=== PATIENT | female | born 1990 | race Caucasian/White ===

== ENCOUNTER 2016-07-28 13:11 | Inpatient (IN) ==
[2016-07-28] MEDS ORDERED: Ondansetron 4 MG/2 ML VIAL IVP PRN ×3 (14:55→22:40)
[2016-07-28] MEDS ORDERED: Naloxone 0.4 MG/ML INJ IVP PRN (14:55)
[2016-07-28] MEDS ORDERED: Famotidine 20 MG/2 ML VIAL IVP PRN (14:55)
[2016-07-28] MEDS ORDERED: Ringers Solution, Lactated 1,000 ML IVC SCH (15:00)
--- NOTE | 2016-07-28 15:01 | OB/GYN History & Physical ---
Date of Encounter: 07/28/16 Time of Encounter: 14:57 Assessment and Plan (1) 38 weeks gestation of Current visit: Yes Status: Acute 1. Unable to obtain cervical exam due to patient discomfort. Will obtain labs and discuss epidural with anesthesia to allow for possible exam. Discussed with patient options of vs. . Plan for . 2. FHT and external monitor. 3. Continue to monitor. 4. GBS positive will start PCN ppx (2) Vaginismus Current visit: Yes Status: Acute 1. Will obtain epidural and attempt cervical exam after anesthesia. (3) Positive GBS test Current visit: Yes Status: Acute 1. Will treat with PCN. (4) History of retinoblastoma Current visit: Yes Status: Acute History of Present Illness Chief complaint: "leak of fluids last night" HPI: Ms. Ibarra is a 26 year old female at 38 weeks 2 days who presents to labor and delivery stating that she has been "leaking clear fluid since last night". She is a patient of Dr. Espana of [place] [employer] and states that she has had appropriate care. The patient was noted to have a heart shaped uterus on US early in . Patient reports cramping in her lower abdomen which is occurring every 5-10 minutes. Patient denies any VB or discharge. Patient denies any headaches or changes in vision. Patient denies any chest pain, shortness of breath, palpitations, LE edema, or changes in bowel habits. Patient reports throughout her she has had difficulty with exams and a cervical exam has not been obtained. Otherwise patient denies any complications with this . Patient is GBS+. Patient is A+, Hep B nonreactive, HIV negative, RPR negative, rubella positive, and varicella positive. Past Med Surg Social Fam HX - Past Medical History Medical history: cancer (retinoblastoma at age 4) Psychiatric history: no psych history - Past Surgical History Surgical History: cholecystectomy - Social History Smoking Status: Never smoker Smokeless Tobacco Status: No Alcohol use: none Drug use: none - Family History Mother Hx Family Cardiac Disorders: No Hx Family Respiratory Disorders: No Hx Family Cancer: No Hx Family GI Disorders: No Hx Family Genitourinary Disorders: No Hx Family Endocrine Disorder: No Hx Family Musculoskeletal Disorders: No Hx Family Neuromuscular Disorders: No Hx Family Neurologic Disorders: No Hx Family HEENT Disorders: No Hx Family Autoimmune Disorders: No Hx Family Reproductive Disorders: No Hx Family Psychosocial Disorders: No Hx Family Medical Disorders: No Obstetrical History - Pregnancies : 1 Para: 0 - History/Complications History/Complications: Pt has not had a pap smear. See HPI for labs. Medications and Allergies Ferrous Sulfate [Iron] 325 mg PO BID 07/10/16 [History] Pnv95/Ferrous Fumarate/FA [ Caplet] 1 each PO DAILY 07/10/16 [History] Allergies No Known Allergies Allergy (Verified 07/10/16 18:49) Review of System OB All systems PM: reviewed and no additional remarkable complaints except as stated Exam - Constitutional Constitutional: well developed, no acute distress (uncomfortable with attempts at vaginal/cervical exam), obese - HEENT HEENT: Mucus Membranes Moist, Other (left eye with limited ROM) - Neck Neck exam: full ROM, normal inspection, trachea midline - Lungs Respiratory exam: CTAB - Cardiovascular Cardiovascular exam: +S1, +S2 - Abdomen Abdomen: Present: bowel sounds normal, gravid, non tender - Extremities Extremities exam: normal inspection, radial pulses palpable and symetrical - Vulva Vulva: bilateral: normal - Vagina Vagina: Present: atrophic mucosa (unable to penetrate vagina for cervical exam 2 /2 patient discomfort) - Uterus Uterus exam: Present: normal size (per gestational age) Results All other labs normal. - VTE Reasons for not Prescribing Prophylaxis: Treatment not Indicated - Low risk for VTE
[2016-07-28 15:07] LABS: Basophils % 0.2 %; Eosinophils # 0.1 K/mcL (0.0-0.6); Eosinophils % 0.6 %; Hematocrit 31.8 % (35.3-44.9); Hemoglobin 9.7 g/dL (11.5-15.4); Immature Granulocytes % 0.6 % (0-4); Lymphocytes # 1.7 K/mcL (0.6-4.6); Lymphocytes % 19.2 %; Mean Corpuscular HGB Conc 30.5 g/dL (31.6-35.5); Mean Corpuscular Hemoglobin 25.3 pg (28.0-33.3); Mean Corpuscular Volume 82.8 fL (83.0-100.0); Mean Platelet Volume 11.5 fL (9.4-12.4); Monocytes # 0.5 K/mcL (0.0-1.3); Monocytes % 5.5 %; Neutrophils # 6.7 K/mcL (1.6-8.9); Platelet Count 268 K/mcL (140-400); Red Blood Count 3.84 M/mcL (3.82-4.97); Red Cell Distribution Width 15.5 % (11.5-14.5); Segmented Neutrophils % 73.9 %
[2016-07-28] MEDS ORDERED: Penicillin G Potassium 5,000,000 UNIT in D5% in Water (Mini-Bag+) 100 ML IVPB ONE (15:13)
--- NOTE | 2016-07-28 16:11 | Anesthesia Evaluation PreOp ---
Date of Encounter: 07/28/16 Time of Encounter: 16:10 - Past History Planned Operation: NUNU Cardiac History: Denies any Significant Hx Pulmonary History: Denies Any Significant HX SERVICE DELIVERY CONSULTANT History: Denies Any Significant HX Other Medical History: Denies Any Significant HX Anesthesia History: No Prior Anesthetic Complications : Yes Test: Positive Alcohol Use: none Drug use: none Medications and Allergies Ferrous Sulfate [Iron] 325 mg PO BID 07/10/16 [History] Pnv95/Ferrous Fumarate/FA [ Caplet] 1 each PO DAILY 07/10/16 [History] Allergies No Known Allergies Allergy (Verified 07/10/16 18:49) - Meds/Allergy Pre-op Review Medications Reviewed: Yes Allergies Reviewed: Yes Beta Blockers on Current Med List: Yes Anesthesia Results - Labs 07/28/16 14:50 Anesthesia Exam - HEENT Pupil (Motor): Pupils equal Mallampati: II Teeth: Normal Oral Opening: Greater than 3 - SERVICE DELIVERY CONSULTANT LOC: Oriented SERVICE DELIVERY CONSULTANT Motor: Normal RUE, Normal LUE, Normal RLE, Normal LLE, Normal Face SERVICE DELIVERY CONSULTANT Sensory: Normal: RUE, LUE, RLE, LLE, Face - Cardiac Rhythm: Regular Murmur: None JVD: No Carotid Bruit: No - Pulmonary Breath Sounds: bilateral Clear Respiratory Effort: Symmetrical
[2016-07-28] MEDS ORDERED: Epidural Premix (fent/bupiv) 110 ML EP SCH (16:15)
[2016-07-28] MEDS ORDERED: Epidural Premix (fent/bupiv) 110 ML EP ONE (16:15)
--- NOTE | 2016-07-28 16:44 | Anesthesia Procedures ---
Date of Encounter: 07/28/16 Time of Encounter: 16:15 Procedures: Anesthesia - Epidural/Spinal Patient ID/Chart reviewed: Yes Patient examined: Yes OB Eval: Gestational age: 38.2 OB Eval: : 1 OB Eval: Hx Para: 0 OB Eval: Contractions: Non-stressed pattern Consent Obtained: Yes Site Prep: Aseptic Technique, Sterile prep and drape, Povidone-Iodine 1% Patient position: upright Local Anesthetic: Lidocaine 1% Amount of Local Anesthetic used: 3 Touhy Needle Gauge: 18 Touhy Needle Depth (cm): 6 Catheter Depth at Skin (cm): 9 Test Dose (1.5% Lido + Epi): Volume given (mls): 3 Test Dose Result: Negative Loading Dose Administered: Thru Catheter Infusion Med: 0.125% Bupivacaine w/ 2 mcg/ml Fentanyl Catheter Secured in Place: Tegaderm, Tape Interspace Used: L4-L5 Loss of Resistance (VICTORIANO): Yes Blood: No CSF: No Paresthesia: No Vitals + FHT's: stable see nursing notes 136/86 84 99% 16
--- NOTE | 2016-07-28 17:00 | OB/GYN Progress Note ---
Date of Encounter: 07/28/16 Time of Encounter: 16:57 - Assessment and Plan (1) 38 weeks gestation of Current Visit: Yes Status: Acute 1. Patient unable to tolerate vaginal exams after epidural. Discussed options of vaginal exam versus primary . Patient declined vaginal exam. Will do section. Risks/benefits of procedure discussed. (2) Positive GBS test Current Visit: Yes Status: Acute (3) Vaginismus Current Visit: Yes Status: Acute (4) History of retinoblastoma Current Visit: Yes Status: Acute Subjective - Subjective Interval history: Pt received epidural per earlier discussion. Patient was unable to tolerate vaginal exam. Objective - Vital Signs Vital Signs: Intake and Output 07/28/16 07/28/16 07/28/16 07:59 15:59 23:59 Other: Weight 103.873 kg Patient Weight 07/28/16 23:59 Weight 103.873 kg - Exam FHR: category 1 Auscultation: bilateral: normal Abdomen: Present: normal appearance, soft, gravid Uterus: Present: normal Cervical dilation: Unable to tolerate cervical exam. - Labs Labs: Abnormal lab results Hgb 9.7 g/dL (11.5-15.4) L 07/28/16 14:50 Hct 31.8 % (35.3-44.9) L 07/28/16 14:50 MCV 82.8 fL (83.0-100.0) L 07/28/16 14:50 MCH 25.3 pg (28.0-33.3) L 07/28/16 14:50 MCHC 30.5 g/dL (31.6-35.5) L 07/28/16 14:50 RDW 15.5 % (11.5-14.5) H 07/28/16 14:50
[2016-07-28] MEDS ORDERED: Metoclopramide 10 MG/2 ML VIAL IVP PRN ×2 (17:02→22:40)
[2016-07-28] MEDS ORDERED: CeFAZolin Pre 2,000 MG/100 ML 2,000 MG/100 ML BAG IVPB ONE (17:36)
[2016-07-28] MEDS ORDERED: Lidocaine/EPI 1:200k 2% PF 10 ML VIAL ONE (17:52)
[2016-07-28] MEDS ORDERED: Ondansetron 4 MG/2 ML VIAL ONE (18:23)
[2016-07-28] MEDS ORDERED: *HR* Morphine Sulfate/PF 5 MG/10 ML AMPUL ONE ×2 (18:25→18:40)
[2016-07-28] MEDS ORDERED: Ketamine *HR* 500 MG/10 ML MDV ONE (18:43)
[2016-07-28] MEDS ORDERED: *HR* Promethazine 25 MG/ML VIAL IVP PRN (18:46)
[2016-07-28] MEDS ORDERED: *HR* Morphine 2 MG/ML SYRINGE IVP PRN ×2 (18:46)
[2016-07-28] MEDS ORDERED: Ondansetron 4 MG/2 ML VIAL IVP ONE (18:46)
[2016-07-28] MEDS ORDERED: Ringers Solution, Lactated 2,000 ML ONE (18:50)
--- NOTE | 2016-07-28 19:15 | OB/GYN Procedure Note ---
Section - Date of procedure: 07/28/16 Preop diagnosis: other (failure to tolerate vaginal exams) Post-op diagnosis: other (R dermoid cyst) Procedure: primary low transverse, other (R ovarian cystectomy) Surgeon: Farhat Stone Estimated blood loss (cc): 700 Career Guidance Technician: Cassidy Rodriguez Anesthesiologist: Brett Milton Anesthesia Type: Epidural section complications: none Disposition: PACU Specimens: Placenta - (s) A Infant Delivery Date: 07/28/16 Infant Delivery Time: 18:18 Presentation: vertex Position: GRICELDA Gender: Female Viability: Viable Pounds: 6 Ounces: 7 Gram Weight: 2920 kg at 1 minute: 8 at 5 minutes: 9 Placenta: complete extraction Cord: 3 umbilical vessels - Narrative Narrative: Patient was taken to the operating room. After satisfactory epidural anesthesia was achieved, she was placed in supine position and prepped and draped in usual manner. After appropriate timeout, the abdomen is the standard Maylard incision. The Deangelo retractor was placed. The peritoneum overlying the lower uterine segment was incised in a U-shaped fashion. Uterine cavity was entered sharply and extended laterally. Fluid was clear. With fundal pressure , the head was delivered. Infant suctioned on deliver of the head. The remainder of the infant was delivered. The umbilical cord double clamped and cut and the infant was handed to nursing staff for further evaluation. The placenta was removed and sent to pathology for analysis. Uterus was closed with 0 Monocryl in a single layer. The adnexa were evaluated and a large 5 x 6 mass was associated with the right ovary. It was consistent with a dermoid cyst. Cystectomy was performed and the cyst was sent to pathology for analysis. Imbricating stitch was placed to reapproximate the ovary. After assurance of hemostasis, the uterus is placed back within the abdominal cavity. The abdomen was closed standard fashion using 0 Vicryl on the fascia and skin clips on the skin. Patient did well and was taken to recovery room in satisfactory condition. Counts were correct.
[2016-07-28] MEDS ORDERED: Penicillin G Potassium 2,500,000 UNIT in D5% in Water 100 ML IVPB SCH (20:00)
--- NOTE | 2016-07-28 21:45 | Anesthesia Evaluation Post Op ---
Date of Encounter: 07/28/16 Time of Encounter: 21:44 - Vital Signs Vital Signs: Vital Signs/O2 Sat/Glucose, Most Current Temp Pulse Resp BP Pulse Ox 07/28/16 21:30 98.1 F 74 14 115/69 96 - Lungs Lungs: Clear Ascult./Percussion - Airway Airway: Non-obstructed - Cardiovascular Regular Rate - Mental Status Mental Status: Alert & Oriented, Answers Appropriately - Pain Pain Scale: 0 - Nausea Vomiting Nausea Vomiting: Not Present - Hydration Hydration: NPO, Moran catheter - Discharge PostOp Status: Transfer Patient to floor
[2016-07-28] MEDS ORDERED: Simethicone 80 MG TAB.CHEW PO PRN (22:40)
[2016-07-28] MEDS ORDERED: Acetaminophen 325 MG TABLET PO PRN (22:40)
[2016-07-28] MEDS ORDERED: Sennosides 8.6 MG TABLET PO PRN (22:40)
[2016-07-28] MEDS ORDERED: Oxytocin 20 units/ LR 1000 mL 20 UNIT/1,000 ML BAG IV SCH (22:40)
[2016-07-29 04:23] LABS: Basophils % 0.3 %; Eosinophils # 0.1 K/mcL (0.0-0.6); Eosinophils % 0.7 %; Hematocrit 26.6 % (35.3-44.9); Hemoglobin 8.4 g/dL (11.5-15.4); Immature Granulocytes % 0.8 % (0-4); Lymphocytes # 2.3 K/mcL (0.6-4.6); Lymphocytes % 24.4 %; Mean Corpuscular HGB Conc 31.6 g/dL (31.6-35.5); Mean Corpuscular Volume 82.4 fL (83.0-100.0); Mean Platelet Volume 11.5 fL (9.4-12.4); Monocytes # 0.6 K/mcL (0.0-1.3); Monocytes % 6.1 %; Neutrophils # 6.4 K/mcL (1.6-8.9); Platelet Count 220 K/mcL (140-400); Red Blood Count 3.23 M/mcL (3.82-4.97); Red Cell Distribution Width 15.5 % (11.5-14.5); Segmented Neutrophils % 67.7 %
[2016-07-29] MEDS: Ibuprofen 600 MG TABLET PO PRN ×3 (05:37→20:21)
--- NOTE | 2016-07-29 08:10 | OB/GYN Progress Note ---
Date of Encounter: 07/29/16 Time of Encounter: 08:10 - Assessment and Plan (1) Status post primary low transverse section Current Visit: Yes Status: Acute Discharged home in a.m. if stable and afebrile Subjective - Subjective Interval history: Patient doing well this morning minimal pain at this time. Patient is tolerating diet IV still in Moran out. Patient denies any lightheadedness or dizziness. Hemoglobin is down to 8.4. Patient was encouraged to ambulate we will advance diet repeat CBC in a.m. If stable possible discharge home in morning. Patient reports: appetite normal, voiding normally, pain well controlled, ambulating normally [place]: doing well Objective - Vital Signs Latest vital signs: Vital Signs Temp Pulse Resp BP Pulse Ox 07/29/16 03:45 98.3 F 76 16 105/64 98 07/29/16 01:00 98 F 65 16 106/66 98 07/29/16 00:02 98 F 69 14 101/61 96 07/28/16 23:00 98.1 F 81 20 113/73 96 07/28/16 22:22 98 F 74 16 121/69 96 07/28/16 21:30 98.1 F 74 14 115/69 96 Intake and Output 07/28/16 07/29/16 07/29/16 23:59 07:59 15:59 Intake Total 1150 / 1150 Output Total 1825 / 1825 450 / 450 Balance -1825 / -1825 700 / 700 Intake: Oral 150 / 150 Intake, Autotransfusion 1000 / 1000 Amount Output: Estimated Blood Loss 1400 / 1400 Catheter 425 / 425 450 / 450 Other: Weight 101.7 kg - Exam Lungs: bilateral: normal Chest: Normal S1, Normal S2 Extremities: Present: normal Abdomen: Present: normal appearance, soft Incision: Present: dressed Uterus: Present: normal, firm - Labs Labs: Laboratory Results - last 24 hr 07/28/16 07/29/16 14:50 04:07 WBC 9.1 9.5 RBC 3.84 3.23 L Hgb 9.7 L 8.4 L Hct 31.8 L 26.6 L MCV 82.8 L 82.4 L MCH 25.3 L 26.0 L MCHC 30.5 L 31.6 RDW 15.5 H 15.5 H Plt Count 268 220 MPV 11.5 11.5 Immature Gran % 0.6 0.8 Seg Neutrophils % 73.9 67.7 Lymphocytes % 19.2 24.4 Monocytes % 5.5 6.1 Eosinophils % 0.6 0.7 Basophils % 0.2 0.3 Neutrophils # 6.7 6.4 Lymphocytes # 1.7 2.3 Monocytes # 0.5 0.6 Eosinophils # 0.1 0.1 Basophils # 0.0 0.0
[2016-07-29] MEDS ORDERED: FERROUS FUMARATE PO SCH (09:00)
[2016-07-29] MEDS ORDERED: PNV95 PO SCH (09:00)
[2016-07-29] MEDS ORDERED: [UNRECOGNIZED DRUG - OTHER] PO SCH (09:00)
[2016-07-29] MEDS: Prenatal Vit/FA 1 EACH TABLET PO SCH (09:36)
[2016-07-30] MEDS: *HR* OxyCODONE/APAP 5/325 TABLET PO PRN (01:55)
[2016-07-30 04:56] LABS: Basophils % 0.1 %; Eosinophils # 0.2 K/mcL (0.0-0.6); Eosinophils % 2.4 %; Hematocrit 23.9 % (35.3-44.9); Hemoglobin 7.3 g/dL (11.5-15.4); Immature Granulocytes % 0.8 % (0-4); Lymphocytes # 2.2 K/mcL (0.6-4.6); Lymphocytes % 29.9 %; Mean Corpuscular HGB Conc 30.5 g/dL (31.6-35.5); Mean Corpuscular Hemoglobin 25.6 pg (28.0-33.3); Mean Corpuscular Volume 83.9 fL (83.0-100.0); Mean Platelet Volume 11.7 fL (9.4-12.4); Monocytes # 0.7 K/mcL (0.0-1.3); Monocytes % 8.8 %; Neutrophils # 4.3 K/mcL (1.6-8.9); Platelet Count 202 K/mcL (140-400); Red Blood Count 2.85 M/mcL (3.82-4.97); Red Cell Distribution Width 15.7 % (11.5-14.5)
--- NOTE | 2016-07-30 08:04 | OB/GYN Progress Note ---
Date of Encounter: 07/30/16 Time of Encounter: 08:02 - Assessment and Plan (1) Status post primary low transverse section Current Visit: Yes Status: Acute POD#2 s/p Will monitor hgb (2) Anemia Current Visit: Yes Status: Acute 1. Will recheck CBC in AM and monitor for symptoms Qualifiers: Anemia type: other cause Other causes of anemia: acute posthemorrhagic Qualified Code(s): D62 - Acute posthemorrhagic anemia (3) 38 weeks gestation of Current Visit: Yes Status: Resolved (4) Positive GBS test Current Visit: Yes Status: Resolved (5) Vaginismus Current Visit: Yes Status: Chronic (6) History of retinoblastoma Current Visit: Yes Status: Chronic Subjective - Subjective Principal diagnosis: POD#2 Interval history: Pt has no complaints. Tolerating regular diet without nausea or vomiting. Pt is up and ambulating. Pt is voiding without difficulty. Hemoglobin dropped to 7.3 today but patient is currently asymptomatic. Patient reports: appetite normal, voiding normally, pain well controlled, ambulating normally [place]: doing well, bottle feeding Objective - Vital Signs Latest vital signs: Vital Signs Temp Pulse Resp BP Pulse Ox 07/29/16 20:05 98.1 F 93 14 112/76 96 07/29/16 16:15 98.2 F 97 16 103/71 97 07/29/16 08:09 98.0 F 84 16 104/66 Intake and Output 07/29/16 07/30/16 07/30/16 23:59 07:59 15:59 Intake Total 700 / 700 Output Total 300 / 300 650 / 650 Balance -300 / -300 50 / 50 Intake: Oral 700 / 700 Output: Urine 300 / 300 650 / 650 Other: Weight 102.4 kg Patient Weight 07/30/16 23:59 Weight 102.4 kg - Exam Lungs: bilateral: normal Chest: Normal S1, Normal S2 Extremities: Present: normal. Absent: tenderness Abdomen: Present: normal appearance, soft, other (normal bowel sounds) - Labs Labs: Laboratory Results - last 24 hr 07/30/16 03:51 WBC 7.4 RBC 2.85 L Hgb 7.3 L Hct 23.9 L MCV 83.9 MCH 25.6 L MCHC 30.5 L RDW 15.7 H Plt Count 202 MPV 11.7 Immature Gran % 0.8 Seg Neutrophils % 58.0 Lymphocytes % 29.9 Monocytes % 8.8 Eosinophils % 2.4 Basophils % 0.1 Neutrophils # 4.3 Lymphocytes # 2.2 Monocytes # 0.7 Eosinophils # 0.2 Basophils # 0.0
[2016-07-30] MEDS: Prenatal Vit/FA 1 EACH TABLET PO SCH (08:43)
[2016-07-30] MEDS: Ibuprofen 600 MG TABLET PO PRN ×2 (11:24→18:47)
[2016-07-31] MEDS: *HR* OxyCODONE/APAP 5/325 TABLET PO PRN (03:09)
[2016-07-31 03:49] LABS: Hemoglobin 7.6 g/dL (11.5-15.4); Immature Platelets 5.2 % (1.1-6.1); Mean Corpuscular HGB Conc 30.4 g/dL (31.6-35.5); Mean Corpuscular Hemoglobin 25.6 pg (28.0-33.3); Mean Corpuscular Volume 84.2 fL (83.0-100.0); Mean Platelet Volume 11.1 fL (9.4-12.4); Red Blood Count 2.97 M/mcL (3.82-4.97); Red Cell Distribution Width 15.9 % (11.5-14.5)
[2016-07-31 07:55] VITALS: BP 119/83
--- NOTE | 2016-07-31 08:20 | Discharge Summary ---
Date of Encounter: 07/31/16 Time of Encounter: 08:17 - Discharge Diagnosis (1) Anemia Priority: Secondary Status: Acute Qualifiers: Anemia type: other cause Other causes of anemia: acute posthemorrhagic Qualified Code(s): D62 - Acute posthemorrhagic anemia (2) Status post primary low transverse section Priority: Primary Status: Acute Comments: Continue routine care discharge home today follow up in 1 week for staple removal 2 week follow up with Dr. Stone for incision check - Discharge Medications Prescriptions: OxyCODONE/APAP 5/325 [Percocet 5/325 MG] 1 each PO Q4HR PRN #30 tablet PRN Reason: Moderate pain 4-6 Ibuprofen [Motrin] 600 mg PO Q6HR PRN #60 tablet PRN Reason: Cramping Docusate [Colace] 100 mg PO BID #60 capsule Ferrous Sulfate 325 mg PO DAILY #30 tablet Home Medications: Ferrous Sulfate [Iron] 325 mg PO BID 07/10/16 [History] Pnv95/Ferrous Fumarate/FA [ Caplet] 1 each PO DAILY 07/10/16 [History] Docusate [Colace] 100 mg PO BID #60 capsule 07/31/16 [Rx] Ferrous Sulfate 325 mg PO DAILY #30 tablet 07/31/16 [Rx] Ibuprofen [Motrin] 600 mg PO Q6HR PRN #60 tablet 07/31/16 [Rx] OxyCODONE/APAP 5/325 [Percocet 5/325 MG] 1 each PO Q4HR PRN #30 tablet 07/31/16 [Rx] Vit/FA 1 each PO DAILY tablet 07/31/16 [Rx] Allergies/Adverse Reactions: Allergies No Known Allergies Allergy (Verified 07/10/16 18:49) Data Procedures and tests throughout hospitalization: Laboratory Tests 07/28/16 07/29/16 07/30/16 14:50 04:07 03:51 WBC 9.1 9.5 7.4 RBC 3.84 3.23 L 2.85 L Hgb 9.7 L 8.4 L 7.3 L Hct 31.8 L 26.6 L 23.9 L MCV 82.8 L 82.4 L 83.9 MCH 25.3 L 26.0 L 25.6 L MCHC 30.5 L 31.6 30.5 L RDW 15.5 H 15.5 H 15.7 H Plt Count 268 220 202 MPV 11.5 11.5 11.7 Immature Gran % 0.6 0.8 0.8 Seg Neutrophils % 73.9 67.7 58.0 Lymphocytes % 19.2 24.4 29.9 Monocytes % 5.5 6.1 8.8 Eosinophils % 0.6 0.7 2.4 Basophils % 0.2 0.3 0.1 Neutrophils # 6.7 6.4 4.3 Lymphocytes # 1.7 2.3 2.2 Monocytes # 0.5 0.6 0.7 Eosinophils # 0.1 0.1 0.2 Basophils # 0.0 0.0 0.0 Immature Plt Fraction 07/31/16 03:41 WBC 7.0 RBC 2.97 L Hgb 7.6 L Hct 25.0 L MCV 84.2 MCH 25.6 L MCHC 30.4 L RDW 15.9 H Plt Count 231 MPV 11.1 Immature Gran % Seg Neutrophils % Lymphocytes % Monocytes % Eosinophils % Basophils % Neutrophils # Lymphocytes # Monocytes # Eosinophils # Basophils # Immature Plt Fraction 5.2 Labs on day of discharge: Labs from last 24 hours 07/31/16 03:41 WBC 7.0 RBC 2.97 L Hgb 7.6 L Hct 25.0 L MCV 84.2 MCH 25.6 L MCHC 30.4 L RDW 15.9 H Plt Count 231 MPV 11.1 Immature Plt Fraction 5.2 Date of admission: 07/28/16 13:11 Primary care physician: PCP ODETTE Discharging clinician: Zaira Bruno Anticipated date of discharge: 07/31/16 - Patient Status Disposition: Home, Self-Care Condition: Good Functional capacity at discharge: independent ambulation - Discharge Instructions Follow Up With: ODETTE,PCP [Primary Care Provider] - Brook Espana DO [Partnered Physician] - - Diet and Activity Activity: increase activity as tolerated Diet: regular diet Hospital Course Procedures: [facility] report reviewed prior to discharge. Reason for admission: active labor Delivery: section Episiotomy: none Laceration: none Other procedures: none complications: none Discharge diagnosis: IUP at term delivered baby: female (bottle feeding) Time Attestation: Total time spent providing and/or coordinating discharge services: Time Spent: Less than 30 minutes - VTE Reasons for not Prescribing Prophylaxis: Treatment not Indicated - Low risk for VTE Documentation of Mechanical Device: Intermittent pneumatic compression device Exam - Constitutional Vitals: Temp Pulse Resp BP Pulse Ox 97.8 F 85 16 119/83 98 07/31/16 07:53 07/31/16 07:53 07/31/16 07:53 07/31/16 07:53 07/30/16 19:55 General appearance IM: A&O X 3, pleasant, answers questions appropriately - Respiratory Respiratory exam: Present: CTAB - Cardiovascular Cardiovascular exam IM: Present: RRR, +S1, +S2 - GI/Abdominal GI/Abdominal exam IM: normal bowel sounds Incision: normal, intact, other (janice present) - Uterine Tone: Firm Uterus Position: 2 Fingers Below Umbilicus, Midline - Extremities Exam Extremities exam IM: Present: full ROM, normal capillary refill, normal inspection - Neurological Exam Neurological exam: alert, oriented X3, reflexes normal
[2016-07-31] MEDS: Ibuprofen 600 MG TABLET PO PRN (09:10)
[2016-07-31] MEDS: Prenatal Vit/FA 1 EACH TABLET PO SCH (09:10)
== END 2016-07-31 10:40 | disposition home or self-care (01) | DRG 540 ==
LOC: 1NENULAB → OBSVTOIN 13:11 → 1NENUOBS 22:37
PROVIDERS: ADMIT Obstetrics & Gynecology; ATTEND Obstetrics & Gynecology